=== PATIENT | female | born 1950 | race American Indian/Alaskan Native ===

== ENCOUNTER 2018-08-12 14:40 | Emergency (ER) | payer OTHER ==
[2018-08-12 15:01] VITALS: BMI 30.9
[2018-08-12 15:05] VITALS: RESP 18; O2SAT 97
[2018-08-12] MEDS ORDERED: Sodium Chloride 0.9% 1,000 ML IV STA (15:32)
--- NOTE | 2018-08-12 15:38 | ED PDOC ---
Arrival/HPI - General Chief Complaint: Fever Time Seen by Provider: 08/12/18 15:18 Historian: Patient - History of Present Illness Narrative History of Present Illness (Text): 08/12/18 15:38 68 F with pmh of HTN presents complaining of fever, headache, cough, sore throat and lower back pain x2days. Patient reports not having a primary care provider. Patient denies any chills, dizziness, chest pain, shortness of breath, dyspnea on exertion, diaphoresis, abdominal pain, nausea, vomiting, diarrhea, neck pain, or any other complaint. Time/Duration: < week Symptom Onset: Gradual Symptom Course: Unchanged Activities at Onset: Light Context: Home Past Medical History - Provider Review Nursing Documentation Reviewed: Yes - Infectious Disease Hx of Infectious Diseases: None - Cardiac Hx Cardiac Disorders: Yes Hx Hypertension: Yes - Pulmonary Hx Respiratory Disorders: No - Neurological Hx Neurological Disorder: Yes HX Cerebrovascular Accident: Yes (x 2) - HEENT Hx HEENT Disorder: No - Renal Hx Renal Disorder: No - Endocrine/Metabolic Hx Endocrine Disorders: No - Hematological/Oncological Hx Blood Disorders: Yes Hx Anemia: Yes Hx Cancer: Yes (Bone, skin) - Integumentary Hx Dermatological Disorder: No - Musculoskeletal/Rheumatological Hx Musculoskeletal Disorders: No - Gastrointestinal Hx Gastrointestinal Disorders: No - Genitourinary/Gynecological Hx Genitourinary Disorders: No - Psychiatric Hx Psychophysiologic Disorder: No Hx Substance Use: No - Surgical History Hx Hysterectomy: Yes Hx Orthopedic Surgery: Yes (l knee) Family/Social History - Physician Review Nursing Documentation Reviewed: Yes Family/Social History: Unknown Family HX Smoking Status: Never Smoked Hx Alcohol Use: No Hx Substance Use: No Allergies/Home Meds Allergies/Adverse Reactions: Allergies iodine Allergy (Verified 08/12/18 15:01) ANAPHYLAXIS Review of Systems - Physician Review All systems were reviewed & negative as marked: Yes - Review of Systems Constitutional: Fevers Eyes: Normal ENT: Sore Throat Respiratory: Cough Cardiovascular: Normal Gastrointestinal: Normal Genitourinary Female: Normal Musculoskeletal: Back Pain (lower back pain) Skin: Normal Neurological: Headache Endocrine: Normal Hemo/Lymphatic: Normal Psychiatric: Normal Physical Exam Vital Signs Reviewed: Yes Vital Signs Temp Pulse Resp BP Pulse Ox 08/12/18 15:03 101.5 F H 93 H 18 154/77 H 97 Temperature: Febrile Blood Pressure: Hypertensive Pulse: Tachycardic Respiratory Rate: Normal Appearance: Positive for: Well-Appearing, Non-Toxic, Comfortable Pain Distress: Mild Mental Status: Positive for: Alert and Oriented X 3 - Systems Exam Head: Present: Atraumatic, Normocephalic Pupils: Present: PERRL Extroacular Muscles: Present: EOMI Conjunctiva: Present: Normal Mouth: Present: Moist Mucous Membranes Pharnyx: Present: ERYTHEMA Neck: Present: Normal Range of Motion Respiratory/Chest: Present: Clear to Auscultation, Good Air Exchange. No: Respiratory Distress, Accessory Muscle Use Cardiovascular: Present: Regular Rate and Rhythm, Normal S1, S2. No: Murmurs Abdomen: No: Tenderness, Distention, Peritoneal Signs Back: Present: Normal Inspection Upper Extremity: Present: Normal Inspection. No: Cyanosis, Edema Lower Extremity: Present: Normal Inspection. No: Edema Neurological: Present: GCS=15, Speech Normal Skin: Present: Warm, Dry, Normal Color. No: Rashes Psychiatric: Present: Alert, Oriented x 3, Normal Insight, Normal Concentration Medical Decision Making ED Course and Treatment: ro strep flu pna influenza abdominal pathology uti sepsis 08/12/18 15:36 Impression: 68 F presents complaining of fever, headache, cough, sore throat and lower back pain x2days Plan: -- Labs -- CXR -- Tylenol -- UA -- Reassess and disposition Prior Visits: Notes and results from previous visits were reviewed. Progress Notes: 08/16/18 09:18 pt reassesed sleepign inad. fever improved. ct neg. cxr neg. empirc tamiflu given. no la, no leukocytosis. sepsis unlikely. ua neg. spoke to pt and son. pt states feels comfortable going home. return precautions advied. - RAD Interpretation Narrative RAD Interpretations (Text): 08/12/18 16:08 Chest X Ray -- No active pulmonary disease. Asymmetric prominence of the right hilum could be related to a combination of mild patient rotation to the right and prominent central vasculature however hilar lymphadenopathy/mass cannot be entirely excluded. Repeat PA and lateral radiographs are recommended for definitive evaluation. Radiology Orders: 08/12/18 15:32 CHEST PORTABLE [RAD] Stat Repair Service Dispatcher: Radiologist - Medication Orders Current Medication Orders: Acetaminophen (Tylenol 325mg Tab) 975 mg PO STAT STA Stop: 08/12/18 15:33 Sodium Chloride (Sodium Chloride 0.9%) 1,000 mls @ 999 mls/hr IV .Q1H1M STA Stop: 08/12/18 16:32 - Scribe Statement The provider has reviewed the documentation as recorded by the Sarah Blanco All medical record entries made by the Scribe were at my direction and personally dictated by me. I have reviewed the chart and agree that the record accurately reflects my personal performance of the history, physical exam, medical decision making, and the department course for this patient. I have also personally directed, reviewed, and agree with the discharge instructions and disposition. Disposition/Present on Arrival - Present on Arrival Any Indicators Present on Arrival: No History of DVT/PE: No History of Uncontrolled Diabetes: No Urinary Catheter: No History of Decub. Ulcer: No History Surgical Site Infection Following: None - Disposition Have Diagnosis and Disposition been Completed?: Yes Diagnosis: Viral syndrome Disposition: HOME/ ROUTINE Disposition Time: 19:00 Condition: STABLE Discharge Instructions (ExitCare): Flu, Adult (DC), Flank Pain Additional Instructions: follow up with your doctor/clinic. return to any er with worsening symptoms or concerns. please discuss the results of your chest xray with the clinic you may need further testing as an outpatient. Prescriptions: Oseltamivir Phosphate [Tamiflu] 75 mg PO BID #10 capsule Referrals: [facility] [Outside] - Follow up with primary [facility] [Outside] - Follow up with primary PCP,NO [Primary Care Provider] - Follow up with primary Forms: [employer] (Samoan)
--- NOTE | 2018-08-12 16:01 | RAD ---
Date of service: 08/12/2018 HISTORY: cough COMPARISON: No prior. FINDINGS: LUNGS: The lungs are well inflated and clear. There is asymmetric prominence of the right hilum PLEURA: No pleural effusions or pneumothorax. CARDIOVASCULAR: The heart is normal in size. No aortic atherosclerotic calcifications present. OSSEOUS STRUCTURES: Within normal limits for the patient's age. VISUALIZED UPPER ABDOMEN: Normal. OTHER FINDINGS: None. IMPRESSION: No active pulmonary disease. Asymmetric prominence of the right hilum could be related to a combination of mild patient rotation to the right and prominent central vasculature however hilar lymphadenopathy/mass cannot be entirely excluded. Repeat PA and lateral radiographs are recommended for definitive evaluation. The final report is tagged to the PA review folder.
[2018-08-12 16:31] LABS: VENOUS BLOOD GAS BASE EXCESS 5.9 mmol/L (0.0-2.0); VENOUS BLOOD GAS PO2 79 mm/Hg (30-55); VENOUS BLOOD PH 7.49 (7.32-7.43)
[2018-08-12 17:12] LABS: ALB/GLOB RATIO 1.2 (1.1-1.8); CALCIUM 8.8 mg/dL (8.4-10.5)
[2018-08-12 17:13] LABS: INR 1.13; PARTIAL THROMBOPLASTIN TIME 29.4 Seconds (26.9-38.3); PROTHROMBIN TIME 12.5 SECONDS (9.4-12.5)
[2018-08-12 17:14] LABS: EOS # 0.1 (0.0-0.7); EOS % 1.5 % (1.5-5.0); LYMPH # 0.8 (1.2-3.4); LYMPH % 19.2 % (22.0-35.0); MEAN CELL VOLUME 85.2 fl (80.0-105.0); MEAN CORPUSCULAR HEMOGLOBIN 27.9 pg (25.0-35.0); MEAN CORPUSCULAR HGB CONC 32.7 g/dl (31.0-37.0); MEAN PLATELET VOLUME 9.6 fl (7.0-11.0); MONO # 0.5 (0.1-0.6); MONO % 13.7 % (1.0-6.0); RBC 3.59 10^6/uL (3.5-6.1); RED CELL DISTRIBUTION WIDTH 12.5 % (11.5-14.5)
[2018-08-12 17:18] LABS: INFLUENZA A B NEGATIVE FOR FLU A/B (NEGATIVE)
[2018-08-12 17:19] LABS: URINE BILIRUBIN NEGATIVE (NEGATIVE); URINE BLOOD NEGATIVE (NEGATIVE); URINE GLUCOSE (UA) NEGATIVE (NEGATIVE); URINE LEUKOCYTE ESTERASE NEGATIVE Leu/uL (NEGATIVE); URINE PROTEIN NEGATIVE mg/dL (<30 mg/dL); URINE UROBILINOGEN 0.2 E.U./dL (<1 E.U./dL)
[2018-08-12 17:20] LABS: URINE APPEARANCE CLEAR (CLEAR); URINE COLOR LIGHT YELLOW (YELLOW)
[2018-08-12 19:11] VITALS: BP 148/71; PULSE 86; TEMP 99.2
--- NOTE | 2018-08-13 08:10 | CT ---
Date of service: 08/12/2018 PROCEDURE: CT Abdomen and Pelvis without intravenous contrast HISTORY: flank pain/fever COMPARISON: None. TECHNIQUE: Without contrast.. Contrast dose: Radiation dose: Total exam DLP = 559.92 mGy-cm. This CT exam was performed using one or more of the following dose reduction techniques: Automated exposure control, adjustment of the mA and/or kV according to patient size, and/or use of iterative reconstruction technique. FINDINGS: LOWER THORAX: Unremarkable. LIVER: Unremarkable. No gross lesion or ductal dilatation. There is a 22 x 26 mm cyst in the anterior right lobe of the liver. GALLBLADDER AND BILE DUCTS: Unremarkable. PANCREAS: Unremarkable. No gross lesion or ductal dilatation. SPLEEN: Unremarkable. ADRENALS: Unremarkable. No mass. KIDNEYS AND URETERS: Unremarkable. No hydronephrosis. No solid mass. VASCULATURE: Unremarkable. No aortic aneurysm. No aortic atherosclerotic calcification or mural plaque present. BOWEL: Unremarkable. No obstruction. No gross mural thickening. APPENDIX: Unremarkable. Normal appendix. PERITONEUM: Unremarkable. No free fluid. No free air. LYMPH NODES: Unremarkable. No enlarged lymph nodes. BLADDER: Unremarkable. REPRODUCTIVE: Unremarkable. 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 No evidence of urolithiasis
== END 2018-08-12 20:00 | disposition home or self-care (01) ==
LOC: ED 14:40
DX: B34.9 Viral infection, unspecified (principal); I10 Essential (primary) hypertension; Z86.73 Personal history of transient ischemic attack (TIA), and cerebral infarction without residual deficits
CPT/HCPCS: 71045; 74176; 80053; 81003; 82803; 83690; 85025; 85610; 85730; 87070; 87430; 87804; 99284; J7030